=== PATIENT | male | born 1955 | race Caucasian/White ===

== ENCOUNTER → 2022-08-17 08:01 | Outpatient (CLI) | payer OTHER, SELFPAY ==
[2022-08-17 09:43] LABS: Add Manual Diff / Slide Review NO; Basophils Absolute Auto 0 /uL (0-100); Basophils Percent Auto 0.8 % (0-2); Eosinophils Absolute Auto 200 /uL (0-450); Eosinophils Percent Auto 3.8 % (2-4); Hematocrit 42.5 % (41-53); Hemoglobin 14.7 g/dL (13.5-17.5); Lymphocytes Absolute Auto 1000 /uL (1100-4500); Lymphocytes Percent Auto 20.2 % (25-40); Mean Corpuscular HGB Conc 34.7 % (30-36); Mean Corpuscular Volume 89.4 fL (80-100); Monocytes Absolute Auto 500 /uL (0-900); Monocytes Percent Auto 10.5 % (3-14); Neutrophils Absolute Auto 3300 /uL (1500-7000); Neutrophils Percent Auto 64.7 % (50-75); Platelet Count 157 X10^3/uL (150-400); Red Blood Cell Count 4.75 X10^6/uL (4.5-5.9); Red Cell Distribution Width 13.1 % (11.6-14.8); White Blood Cell Count 5.2 X10^3/uL (4.5-11.0)
[2022-08-17 09:56] LABS: Alanine Aminotransferase 24 IU/L (<50); Albumin 3.9 g/dL (3.5-5.0); Albumin Globulin Ratio 1.4 (1.0-2.8); Alkaline Phosphatase 64 U/L (38-126); Aspartate Aminotransferase 23 IU/L (17-59); BUN Creatinine Ratio 18.9 (6-22); Bilirubin Total 0.9 mg/dL (0.2-1.3); Blood Urea Nitrogen 14 mg/dL (9-20); Calcium 8.9 mg/dL (8.4-10.2); Carbon Dioxide 24 mmol/L (22-32); Chloride 106 mmol/L (98-107); Cholesterol 144 mg/dL (140-199); Estimated Glomerular Filt Rate > 60 mL/min (>60); Globulin 2.8 g/dL (1.7-4.1); Glucose 104 mg/dL (80-110); HDL Cholesterol 41 mg/dL (40-60); HEMOLYSIS < 15 (0-50); LDL Cholesterol Calculated 77 mg/dL (<100); Potassium 4.6 mmol/L (3.4-5.1); Sodium 137 mmol/L (137-145); Total Protein 6.7 g/dL (6.3-8.2); Triglycerides 128 mg/dL (35-150)
[2022-08-17 10:27] LABS: Prostate Specific Antigen Scrn 1.37 ng/mL (0.1-4.0)
== END ==
PROVIDERS: PCP Student in an Organized Health Care Education/Training Program; Referring Provider Student in an Organized Health Care Education/Training Program; Visit Provider Student in an Organized Health Care Education/Training Program
DX: E55.9 Vitamin D deficiency, unspecified (principal); E78.5 Hyperlipidemia, unspecified; Z12.5 Encounter for screening for malignant neoplasm of prostate; I10 Essential (primary) hypertension; K76.0 Fatty (change of) liver, not elsewhere classified; Z79.899 Other long term (current) drug therapy
CPT/HCPCS: 36415; 80053; 80061; 82306; 85025; G0103

== ENCOUNTER 2022-09-12 06:41 | Day surgery (SDC) | payer OTHER, SELFPAY ==
[2022-09-12 07:01] VITALS: BMI 31.8
[2022-09-12 07:06] VITALS: BP 158/88; PULSE 72; RESP 17; TEMP 36.2; O2SAT 94
[2022-09-12] MEDS: LACTATED RINGERS 1,000 ML 42 ML IV (07:15)
--- NOTE | 2022-09-12 07:47 | P.HP_ITS ---
History of Present Illness History of Present Illness Date Patient Seen: 09/12/22 Time Patient Seen: 07:48 Chief complaint[place] [facility] [place]: Self h/o colon polyps. This is his 5th colonoscopy, last was <5yrs. No symptoms [facility] History Colon polyps (~2013) Depression (~1994) Hyperlipidemia (~1986) Hypertension (~2017) Tinnitus (~2004) Surgical History Anesthesia H/O excision of ganglion cyst (~1966) History of appendectomy (~1964) History of sinus surgery (~2004) History of vasectomy (~1991) Status post right rotator cuff repair (~2015) Family History Father History of heart disease Hyperlipidemia ADHD Mother Cancer Brother ADHD Sister Obesity Pulmonary embolism Mental health problem ADHD Sister Mental health problem Schizophrenia Grandfather Alcoholism Grandmother Cancer Diabetes mellitus Grandfather Diabetes mellitus History of heart disease Grandmother Stroke Social History household members: spouse Smoking Status: Former smoker alcohol intake: current Meds Home Medications and Allergies Home Medications Medication Instructions Recorded Confirmed Type losartan 100 mg tablet 100 mg PO DAILY #90 tabs 07/05/22 09/12/22 Rx aspirin 81 mg tablet,delayed 81 mg PO DAILY 08/15/22 09/12/22 History release atorvastatin 40 mg tablet 40 mg PO BEDTIME 08/15/22 09/12/22 History carvedilol phosphate 20 mg 20 mg PO DAILY 08/15/22 09/12/22 History capsule,[id number] multiphase Allergies Allergy/AdvReac Type Severity Reaction Status Date / Time lanolin Allergy Mild rash Verified 09/12/22 06:59 Review of Systems Review of Systems ROS: Yes All systems reviewed with the patient and are negative except as other patterson documented Exam Vital Signs (past 8 hours): - 09/12/22 07:06 Temperature 97.1 F L Pulse Rate 72 Respiratory Rate 17 Blood Pressure 158/88 H Pulse Oximetry 94 Const General: cooperative and healthy appearing Nutritional Appearance: overweight HENMT Head: normocephalic and atraumatic Eyes Periorbital: periorbital findings normal Sclera: sclerae normal Neck Neck: trachea midline Resp Effort & Inspection: normal respiratory effort and able to speak in complete sentences Cardio Rate: regular rate Rhythm: regular rhythm GI Palpation: soft Skin General: atrophy Neuro General: patient alert, patient awake and patient oriented x3 Psych Mental Status: mental status grossly normal Judgment: judgment good Assessment & Plan Assessment & Plan narrative: self h/o colon polyps Plan: colonoscopy with MAC COVID-19 COVID-19 status: Negative Time Spent With Patient Time with patient: less than 30 minutes
--- NOTE | 2022-09-12 07:52 | PM.OP.COLON ---
Operative Date/Time/Diagnoses Date of procedure: 09/12/22 Time of procedure: 07:52 Pre-op diagnosis: h/o colon polyps Post-op diagnosis: same Procedure & Clinicians Study performed: Colonoscopy with MAC Same procedure as scheduled: Yes Indications: History of colon polyps Surgeon: Maria R Doran Procedure Notes Procedure in detail: Preop diagnosis: History of colon polyps Postop diagnosis: Same Operative procedure: Colonoscopy with MAC Surgeon: Anushka Doran MD Findings: No polyps identified. One diverticuli in the cecum, no significant diverticuli of the descending colon Procedure: Patient placed in a lateral position. Rectal exam performed showing normal tone no masses. Colonoscope inserted into the rectum and advanced to ileocecal valve with minimal difficulty. Insufflation and extraction of the scope and the above findings. Impression: No polyps identified on this colonoscopy. Single small diverticuli in the cecum, no significant diverticulosis of the sigmoid colon. Plan: Repeat colonoscopy in 5 years unless otherwise indicated by change in clinical condition Findings: divertiulosis Specimen(s): none sent Complications: none Post-procedure Recommendations: Colonoscopy in 5 years Follow up: as needed Disposition: PACU
[2022-09-12 08:08] VITALS: BP 118/77; PULSE 75; RESP 17; TEMP 36.4; O2SAT 93
[2022-09-12 08:14] VITALS: BP 131/82; PULSE 87; RESP 16; O2SAT 93
[2022-09-12 08:18] VITALS: BP 128/82; PULSE 76; RESP 15; O2SAT 93
[2022-09-12 08:23] VITALS: BP 130/87; PULSE 70; RESP 12; TEMP 36.4; O2SAT 94
== END 2022-09-12 08:42 | disposition home or self-care (01) ==
PROVIDERS: Surgery; PCP Student in an Organized Health Care Education/Training Program; Referring Provider Surgery; Visit Provider Surgery
PROC: 0DJD8ZZ Inspection of Lower Intestinal Tract, Via Natural or Artificial Opening Endoscopic (ICD-10-PCS; CPT 45378; principal; 2022-09-12 07:45)
DX: Z12.11 Encounter for screening for malignant neoplasm of colon (principal); K57.30 Diverticulosis of large intestine without perforation or abscess without bleeding; Z86.010 Personal history of colon polyps
CPT/HCPCS: 45378; J2704; J3010

== ENCOUNTER → 2023-08-20 11:55 | Outpatient (CLI) | payer OTHER, SELFPAY ==
[2023-08-20 13:46] LABS: Alanine Aminotransferase 28 IU/L (<50); Albumin 4.7 g/dL (3.5-5.0); Albumin Globulin Ratio 1.8 (1.0-2.8); Alkaline Phosphatase 59 U/L (38-126); Aspartate Aminotransferase 27 IU/L (17-59); BUN Creatinine Ratio 23.6 (6-22); Bilirubin Total 1.4 mg/dL (0.2-1.3); Blood Urea Nitrogen 17 mg/dL (9-20); Calcium 9.2 mg/dL (8.4-10.2); Carbon Dioxide 27 mmol/L (22-32); Chloride 103 mmol/L (98-107); Cholesterol 142 mg/dL (140-199); Estimated Glomerular Filt Rate > 60 mL/min (>60); Globulin 2.6 g/dL (1.7-4.1); Glucose 93 mg/dL (80-110); HDL Cholesterol 42 mg/dL (40-60); HEMOLYSIS 27 (0-50); LDL Cholesterol Calculated 63 mg/dL (<100); Potassium 4.7 mmol/L (3.4-5.1); Sodium 138 mmol/L (137-145); Total Protein 7.3 g/dL (6.3-8.2); Triglycerides 186 mg/dL (35-150)
== END ==
PROVIDERS: PCP Family Medicine; Referring Provider Family Medicine; Visit Provider Family Medicine
DX: Z00.00 Encounter for general adult medical examination without abnormal findings (principal); I10 Essential (primary) hypertension; E78.5 Hyperlipidemia, unspecified; K76.0 Fatty (change of) liver, not elsewhere classified
CPT/HCPCS: 36415; 80053; 80061

== ENCOUNTER → 2024-06-01 15:17 | Outpatient (CLI) | payer OTHER, SELFPAY ==
[2024-06-01 16:08] LABS: Alanine Aminotransferase 25 IU/L (<50); Albumin 4.5 g/dL (3.5-5.0); Alkaline Phosphatase 62 U/L (38-126); Aspartate Aminotransferase 25 IU/L (17-59); BUN Creatinine Ratio 24.4 (6-22); Blood Urea Nitrogen 19 mg/dL (9-20); Calcium 9.3 mg/dL (8.4-10.2); Carbon Dioxide 23 mmol/L (22-32); Chloride 105 mmol/L (98-107); Cholesterol 153 mg/dL (140-199); Estimated Glomerular Filt Rate > 60 mL/min (>60); Globulin 2.3 g/dL (1.7-4.1); Glucose 113 mg/dL (80-110); HDL Cholesterol 42 mg/dL (40-60); HEMOLYSIS < 15 (0-50); LDL Cholesterol Calculated 50 mg/dL (<100); Potassium 4.4 mmol/L (3.4-5.1); Sodium 138 mmol/L (137-145); Total Protein 6.8 g/dL (6.3-8.2); Triglycerides 305 mg/dL (35-150)
== END ==
PROVIDERS: PCP Family Medicine; Referring Provider Family Medicine; Visit Provider Family Medicine
DX: Z00.00 Encounter for general adult medical examination without abnormal findings (principal); I10 Essential (primary) hypertension; Z12.5 Encounter for screening for malignant neoplasm of prostate; E78.5 Hyperlipidemia, unspecified
CPT/HCPCS: 36415; 80053; 80061; G0103

== ENCOUNTER → 2024-07-01 10:32 | Outpatient (CLI) | payer OTHER, SELFPAY ==
[2024-07-01 11:12] LABS: C-Reactive Protein Quant < 0.5 mg/dL (<1.0); Cholesterol 140 mg/dL (140-199); HDL Cholesterol 40 mg/dL (40-60); LDL Cholesterol Calculated 49 mg/dL (<100); Triglycerides 253 mg/dL (35-150); Uric Acid 5.5 mg/dL (3.5-8.5)
[2024-07-01 11:15] LABS: Rheumatoid Factor < 8.6 IU/mL (<12.0)
[2024-07-01 11:20] LABS: Erythrocyte Sedimentation Rate 4 MM/HR (0-15)
[2024-07-02 20:11] LABS: CCP Antibodies IgG/IgA 5 units (0-19)
== END ==
PROVIDERS: PCP Family Medicine; Referring Provider Family Medicine; Visit Provider Family Medicine
DX: E78.5 Hyperlipidemia, unspecified (principal); M25.50 Pain in unspecified joint; R05.9 Cough, unspecified
CPT/HCPCS: 36415; 80061; 84550; 85651; 86140; 86200; 86430

== ENCOUNTER → 2024-07-06 12:20 | Outpatient (CLI) | payer OTHER, SELFPAY ==
--- NOTE | 2024-07-06 12:22 | DI.RAD.S_ITS ---
PROCEDURE: XR CHEST 2V INDICATIONS: cough TECHNIQUE: 2 views of the chest were acquired. COMPARISON: None. FINDINGS: Surgical changes and devices: None. Lungs and pleura: Lungs are clear. No pleural effusions or pneumothorax. Mediastinum: Mediastinal contours are normal. Heart size is normal. Bones and chest wall: No suspicious bony abnormalities. Soft tissues appear unremarkable. IMPRESSION: No acute cardiopulmonary abnormality is seen. Dictated by: Sohan Casey M.D. on 07/06/2024 at 15:53 Approved by: Sohan Casey M.D. on 07/06/2024 at 15:54
== END ==
LOC: RAD 12:21
PROVIDERS: PCP Family Medicine; Referring Provider Family Medicine; Visit Provider Family Medicine
DX: R05.9 Cough, unspecified (principal); M25.50 Pain in unspecified joint
CPT/HCPCS: 71046